=== PATIENT | female | born 1945 | race Caucasian/White ===

== ENCOUNTER 2021-01-03 16:56 | Inpatient (IN) | payer OTHER, BC ==
[~2021-01-03] VITALS: Ht 157.5 cm; Wt 75.4 kg
[2021-01-03] MEDS ORDERED: GYNODIOL0.5 MG PO (23:03)
[2021-01-03] MEDS ORDERED: ENTRESTO 49 MG1 EACH PO (23:03)
[2021-01-03] MEDS ORDERED: PROTONIX40 M2 PO (23:03)
[2021-01-03] MEDS ORDERED: ATORVASTATIN CA20 MG PO (23:03)
[2021-01-03] MEDS ORDERED: VITAMIN D21250 MCG PO (23:04)
[2021-01-03] MEDS ORDERED: CARVEDILOL6.25 M1 PO (23:05)
[2021-01-03] MEDS ORDERED: ARIPIPRAZOLE2 MG PO (23:06)
[2021-01-03] MEDS ORDERED: SPIRONOLACTONE25 M1 PO (23:23)
[2021-01-03] MEDS ORDERED: ZOLOFT25 MG PO (23:23)
[2021-01-03] MEDS ORDERED: DESYREL150 MG PO (23:24)
--- NOTE | 2021-01-04 07:39 | NUR ---
0500 PATIENT ADMITTED TO THE UNIT FROM ER VIA WHEELCHAIR. VSS. COOPERATIVE AND CALM. SIGNED IN VOLUNTARILY. PHYSICIAN NOTIFIED OF ARRIVAL. PT STATES THAT SHE WAS HAVING SI AND TOOK OD ON AMBIEN A COUPLE OF DAYS AGO. STATES THAT SHE HAS BEEN GOING THROUGH A LOT AND WAS TIRED. PT AMBULATORY VIA WALKER AND HAS NO SKIN ISSUES OTHER THAN SOME BRUISING. NO S/S OF DISTRESS NOTED. WILL CONTINUE TO MONITOR FOR CHANGE IN STATUS.
[2021-01-04 10:15] LABS: CHOLESTEROL 175 mg/dL (<200); HDL CHOLESTEROL 63 mg/dL (>40); LDL CHOLESTEROL 90 mg/dL (<100); TC:HDL 2.8 Ratio (Not establshd); TRIGLYCERIDE 110 mg/dL (<150); VLDL 22 mg/dL (<40)
[2021-01-04 10:26] VITALS: BP 120/59
--- NOTE | 2021-01-04 13:27 | NUR ---
Assumed pt care at 0700. pt was alert and oriented x4. Assessments completed, vss. Denies si/hi, denies pain at this time. Took meds whole, no fifficulty noted. Ambulates with a walker. No sign of acute distress noted at this time. Calm and cooperative with care. Pt is knowlegable of all her meds. Makes needs known to staff. Continent of bowel and bladder. At this time pt is in groups. Will continue to monitor.
--- NOTE | 2021-01-04 15:15 | NUR ---
01-04-2021--12:30 PM--went to [email or web address] and dwaine was sitting at a table alone after eating lunch. I askd if I could sit down and she said yes. We alked for about 30 minutes prioor to the social work group starting. (She was very motivated to do the activit and got up and started walking toward the group.) Patient talked about her home in [place] and the things she and her had worked on together. (They both worked at the [employer] in [place].) She shared that going there is somethng she hasn't been able to do for a long time due to her heart and difficulty breathing. She was animated when talking about her seven great-grandchildren that they occasionally care for. She appears to have things to live for and that can still bring her pleasure. She needs to reach the reality of her situation and illnesses that slow us down as we age. I will contnue to reach out to her to deterine if there are some things she can get involved in around [place].
--- NOTE | 2021-01-05 02:21 | NUR ---
PATIENT SITTING AT TABLE TALKING ON PHONE WITH DAUGHTER. PATIENT STATES THAT HER MEDICATIONS ARE NOT CORRECT. STATES THAT HER PRIMARY CARE FACILITY SENT A MED LIST THAT IS OVER 10 YEARS OLD. PATIENT IS AAO TO PERSON AND PLACE. PERIODS OF FORGETFULLNESS. PATIENT APPEARS TO SUFFER FROM SOME NIGHT TERRORS SHE YELLS OUT DURING HER SLEEP ON A FEW OCCASSIONS. PATIENT IS CALM AND COOPERATIVE AND FOLLOWS ALL COMMANDS. VSS. DENIES PAIN OR NEEDS. AMBULATES WITH WALKER. MINIMAL ASSISTANCE NEEDED FOR CARE. WILL CONTINUE TO MONITOR FOR CHANGES IN STATUS.
[2021-01-05 06:03] LABS: FOLIC ACID 11.9 ng/mL (8.6-58.9)
[2021-01-05] MEDS ORDERED: FUROSEMIDE 20 M20 M1 PO (09:21)
[2021-01-05] MEDS ORDERED: VISTARIL 25 MG25 M1 PO (09:21)
[2021-01-05] MEDS ORDERED: DULOXETINE HCL60 MG PO (09:21)
[2021-01-05 10:17] VITALS: BP 154/50
--- NOTE | 2021-01-05 10:23 | NUR ---
Nutrition: New admit [facility] with MDD, suicide attempt with Ambien. PMH: CHF, CKD, HTN, HLD, brain aneurysm, depression, CKD, pulmonary HTN, DJD. Meds/labs reviewed. pt eating 75-100% of meals so far on unit. Discussed ordering meals as pt not a big breakfast eater. Assisted with this and food preferences. Pt reports decreased appetite at home for a few months but no major weight changes. Weighs daily due to hx CHF and watches sodium intake. Weights generally run 169-175# per pt. Pt requesting standing scale weights periodically. Alerted staff. Place as low nutrition risk.
[2021-01-05 12:12] VITALS: BP 154/50
--- NOTE | 2021-01-05 13:36 | NUR ---
RESUMMED CARE FROM OVERNIGHT SHIFT THIS AM, PATIENT IN ROOM GETTING PREPARED FOR BREAKFAST. PATIENT CAME TO DAY ROOM ATE BREAKFAST TOOK MEDICATION WITHOUT INCIDENCE. PATIENT ALERT ORIENTED TIMES 4 PATIENT CALM COOPERATIVE LIKES TO TALK. PATIENTS ABDOMEN SOFT BOWEL SOUNDS PRESENT PATIENTS LUNGS CLEAR. PATIENT DENIES SI/HI/AH/VH AT PRESENT PATIENT DENIES ANXIETY AND DEPRESSION. PATIENT PARTICIPATES IN GROUPS WILL CONTINUE TO MONITOR PATIENT FOR SAFETY AND BEHAVIORS.
[2021-01-05 19:00] VITALS: BP 136/47
[2021-01-06 01:06] LABS: GLYCOHEMOGLOBIN (HGB A1C) 5.6 % (4.8-5.6)
[2021-01-06 09:07] VITALS: BP 114/59
[2021-01-06 12:46] VITALS: BP 114/59
--- NOTE | 2021-01-06 14:37 | NUR ---
RESUMMED CARE FROM OVERNIGHT SHIFT THIS AM, PATIENT ASLEEP IN ROOM. PATIENT WAS SEDATED FROM PREVIOUS DAY PRN MEDICATION SHE RECIEVED. PATIENT DID NOT EAT HER BREAKFAST AND I DID NOT GIVE HER HER MEDICATION. PATIENTS ABDOMEN SOFT BOWEL SOUNDS PRESENT, PATIENTS LUNGS CLEAR. PATIENT DID GET UP ATE LUNCH I GAVE PATIENT PRUNE JUICE AND MIRALAX. PATIENT HAD A SHOWER TODAY I ENCOURAGED PATIENT TO DRINK MORE WATER TO HELP WITH HER CONSTIPATION. PATIENT HAS NOT DISPLAYED ANY BEHAVIORS WILL CONTINUE TO MONITOR PATIENT FOR SAFETY AND BEHAVIORS.
--- NOTE | 2021-01-06 15:19 | NUR ---
Check in with patient - Pt. states she is doing well. Pt. was very verbally and expressed liking having someone to talk to. The pt. talked about her family, primarily her , children and sisters. The pt. acknowledged some feelings of depression. She denied suicidal ideation but expressed thoughts of not being alive. The pt. talked about an indicident in which she had taken pills with her orange juice, had a pistol that she struggled putting ammunition in, contacting her expressing how sorry she was and being found in the home by her . The pt. expressed not wanting to sleep due to having vivid nightmares. She states that the nightmares are beginning to not be as bad as before. The pt. also expressed sorrow and grief around the passing of her sisters.
[2021-01-06 20:09] VITALS: BP 135/48
--- NOTE | 2021-01-07 00:57 | NUR ---
PATIENT AAOX4. PATIENT IS INTERACTIVE WITH STAFF AND PEERS. DID COMPLAI OF A HEADACHE AND MILD BACK PAIN. PRN TYLENOL GIVEN. PATIENT QUIET AND COOPERATIVE. WATCHED TV IN THE COMMON AREA FOR A WHILE. NO S/S OF DISTRESS NOTED. PT HAD A CONVERSATION WITH HER DAUGHTER ON THE PHONE. NO ACUTE ISSUES OBSERVED. WILL CONTINUE TO MONITOR FOR CHANGES ON STATUS.
[2021-01-07 06:35] VITALS: BP 132/45
--- NOTE | 2021-01-07 13:19 | NUR ---
REMAINS HYPERVERBAL AND SPEECH PRESSURED-CIRCUMSTANTAL. WAS ABLE TO REPORT FEELING LIKE THOUGHTS ARE "GOING FAST" AND IT IS DIFFUCULT TO CONCENTRATENSOMETIMRS,
[2021-01-07 19:50] VITALS: BP 141/49
[2021-01-07 19:54] VITALS: BP 141/49
[2021-01-07 20:03] VITALS: BP 141/49
--- NOTE | 2021-01-08 01:05 | NUR ---
Assumed care on 01/07/21 @ 1900, A&Ox3-4 Seated in a akilah chair in the day room watching NFL football on TV. Legs proped to decrease edema, chair alarm in position with alarm activated. Referenced Suicide attempt, swallowing 20 Ambien, denies feeling suicidal at this time. Denies AH/VH, Reports depression. Discussed medication, patient asked apropriate questions regarding meds, and took medication whole with water. 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 Will contiue to monitor for comfort and safety as per unit protocol. High fall risk, uses a walker to ambulate, bed alarm set and bed in low position.
[2021-01-08 05:45] LABS: BASOPHILS 1.2 % (0.0-2.0); EOSINOPHILS 4.1 % (0.0-3.0); HEMATOCRIT 30.1 % (37.0-47.0); HEMOGLOBIN 9.9 gm/dL (12.0-15.0); LYMPHOCYTES 34.6 % (24.0-44.0); MCH 27.2 pg (26.0-34.0); MCHC 32.8 g/dL (28.0-37.0); MCV 82.9 fL (80.0-100.0); MONOCYTES 9.3 % (1.0-8.0); PLATELET COUNT 182 thou/uL (150-400); POLYS 50.8 % (36.0-66.0); RBC 3.63 mil/uL (4.20-5.00)
[2021-01-08 06:07] LABS: CALCIUM 8.8 mg/dL (8.5-10.1); CREATININE 1.1 mg/dL (0.6-1.0); MAGNESIUM 2.2 mg/dL (1.8-2.4); POTASSIUM 4.6 mmol/L (3.5-5.1)
--- NOTE | 2021-01-08 09:03 | NUR ---
01-08-2021--08:50 AM--Stopped by patient as I was walking into the dayroom. She states except for her backache she is feeling well and ready to go home. Will discuss antipicated DC date in team meeting.
[2021-01-08 10:07] VITALS: BP 114/33
[2021-01-08 10:30] VITALS: BP 114/33; BP 114/59
--- NOTE | 2021-01-08 11:15 | NUR ---
01-08-2021--11:15 AM--Call to Mr. Groves ([phone]) to request we have a family meetoing at [facility] with his daughter, if possible. We would like to discuss discharge plans and a safety plan for the patient including securoing the firearms in the home, possibly home health, or an medical receptionist assistant for patioent when he can't be at home. Not in. Requested he call me back woth the daughter's phone number and a good time tomorrow for a family meeting.
--- NOTE | 2021-01-08 11:25 | NUR ---
01-08-2021--11:25 AM--Call returned by and he is agreeable to having a family meeting with his daughter involved. He was going to call his daughter and have her call me back with a phone number for him and for her. (Daughter lives in [place]).
--- NOTE | 2021-01-08 13:22 | NUR ---
RESUMMED CARE FROM OVERNIGHT SHIFT THIS AM, PATIENT IN ROOM GETTING READY FOR BREAKFAST. PATIENT ALERT ORIENTED TIMES 4 PATIENT DENIES SI/HI/AH/VH AT PRESENT. PATIENTS ABDOMEN SOFT BOWEL SOUNDS PRESENT, PATIENTS LUNGS CLEAR. PATIENT IS HYPERVERBAL AT TIMES SHE LIKES TO TALK WITH PEOPLE. PATIENT PARTICIPATES IN GROUPS HAS NOT SHOWN ANY BEHAVIORS. WILL CONTINUE TO MONITOR PATIENT FOR SAFETY AND BEHAVIORS.
[2021-01-08 20:25] VITALS: BP 123/41
[2021-01-09] VITALS: BP 123/41
--- NOTE | 2021-01-09 01:07 | NUR ---
AT ONSET OF SHIFT PT WAS CALMLY SITTING IN HER ROOM. THIS SHIFT PT WAS ALERT AND ORIENTED X4 WITH BROAD AFFECT. PT SPENT FREE TIME SITTING IN HER ROOM READING. PT STATED THAT THE [facility]ES AND [facility] ARE WORKING AND SHE NEEDS TO BE CLOSE TO HER RESTROOM THIS EVENING. PT WAS COMPLIANT WITH VITAL SIGNS AND MEDICATION. PT HAS +1 PITTING EDEMA TO BILATERAL LEGS AND FEET. KNEE HIGH JAYJAY HOSE WERE APPLIED AND PT ENDOURAGED TO ELEVATE FEET. PT REQUESTED TRAZODONE TO HELP WITH SLEEP. DURING 1:1 WITH RN PT WAS SLIGHTLY HYPERVERBAL AND CICUMSTANTIAL. PT STATED THERE WILL BE A FAMILY MEETING TOMORROW TO DISCUSS PT MOVING TO A DIFFERENT HOSPITAL. PT STATED THIS IS NOT THE RIGHT ENVIRONMENT FOR HER SINCE SHE IS NOT DISORIENTED LIKE THE OTHER PATIENTS. PT TALKED ABOUT HER PAST NURSING CAREER. PT DENIED SI/HI/AVH. FALL PRECAUTIONS ARE IN PLACE.
--- NOTE | 2021-01-09 07:42 | NUR ---
01-08-2021--Patient's called and gave me his cell phone blanchetommy ([phone]) and his daughter's phone number for family meeting ([phone]). Meeting scheduled on 01-09-2021 at 13:00.
[2021-01-09 09:13] VITALS: BP 126/50
--- NOTE | 2021-01-09 09:49 | NUR ---
Alert and orientated X4. Calm, cooperative and compliant. Conversive. Interacting with peers and staff, participating in groups. Ambulates with regular, steady gait. Breath sounds clear. Reg HR auscultated. Color pink with brisk capillary refill and palpable peripheral pulses. +1 edema in lower legs, JAYJAY hose in place. Independent with voiding. Active bowel sounds over soft, rounded abdomen. States she had BM last night. Lidocaine patch placed on R lower back. States eyes are dry, articifial tears instilled per request.
--- NOTE | 2021-01-09 10:45 | NUR ---
01-09-2021--10:00 AM--[facility] to [facility] to determine how she is feeling prior to our famaily meeting with her and daughter. She states she feels better except for pain in her back and neck. I asked her if she had learned any new coping skills she will be able to use to prevent her from hoarding poills and tryoing to take them all at once. She stated she hadn't learned any new skills. I asked her how she is going to do. Iinquired and suggested that gettoing out of the house and volunteering at the [facility] like before or going with her on Fridaygs when he goes to the [facility] [place]. I educated her on having things to do planned ahead of time so she doesn't have to sit and wonder "What am I going to do now"? She states when she quit going with her was when she found out about her heart and she was short of breath and tired and not wanting to do anything. She reports she will be going with her more. She also states the only time he is gone is on Friday mornings and that is when her house keeper comes in so she isn't alone. Discussed the benefits of getting a therapist to work with her so she has someone to vent to and express her feelings (ex. fear about having heart problems.)
--- NOTE | 2021-01-09 14:25 | NUR ---
01-09-2021--13:00--Family meeting this date. Present in the meeting were Dion (), Michelle (patient), Clarissa (daughter); Dr. Gerald Horn (NEELA abdullahi) and this worker. Dion and her daughter had done alot of exploration into services that will be available in their area. Doctor gave suggestions for a therapist and psychiatrist, possible care/assistance at home and a out patient day program. We explained to Dion and Niles that [facility] can provide all of these services. Patient and I will call together to set up intake etc. at the [facility]. DC date--tentatively Friday at 13:00.
--- NOTE | 2021-01-09 14:43 | NUR ---
01-09-2021--14:15--Call returned to Clarissa. We discussed some of the things the doctor recommended are important but patient also needs to feel on control of her life. They may not be necessary permanently. Niles plans to come on Friday or Friday for a little while to visit mom. (Patient shared with me after the meetng that her sons were upset that they were not included in the conversation.)
[2021-01-09 19:06] VITALS: BP 135/44
[2021-01-10] VITALS: BP 135/44
--- NOTE | 2021-01-10 01:46 | NUR ---
Michelle presented as calm, cooperative, and social with staff and peers this shift. She was alert and oriented x4 and denied SI/HI/STEVENS. She expressed that her family meeting today went very well but did voice that her daughter would like her and her to go to an assisted living facility, which she expressed she does not agree with. She was able to express her needs appropriately but did appear to have a tangential thought process at times. Pt ambulated using her walker and denied needs at this time. Pt was medication compliant, without difficulty and received trazodone and tylenol PRN per pt request. Will continue to monitor.
[2021-01-10 05:36] LABS: HEMATOCRIT 29.9 % (37.0-47.0); HEMOGLOBIN 9.9 gm/dL (12.0-15.0); MCH 27.2 pg (26.0-34.0); MCHC 32.9 g/dL (28.0-37.0); MCV 82.6 fL (80.0-100.0); RBC 3.62 mil/uL (4.20-5.00); RDW 17.1 % (10.5-14.5); WBC 4.4 thou/uL (4.0-11.0)
[2021-01-10 06:38] LABS: CREATININE 1.6 mg/dL (0.6-1.0); MAGNESIUM 2.2 mg/dL (1.8-2.4); POTASSIUM 4.6 mmol/L (3.5-5.1)
[2021-01-10 09:10] VITALS: BP 118/49
--- NOTE | 2021-01-10 11:54 | NUR ---
01-10-2021--11:55 AM--ADDENDUM: From family meeting on 01-09-2021 with patient, daughter and this worker. Doctor asked oif the pistol and shotgun were put away. He indicated they were locked away and wouldn't be a problem when patient returns home.
--- NOTE | 2021-01-10 12:11 | NUR ---
PATIENT HAS BEEN UP, AND OUT ON THE UNIT, PARTICIPATES IN GROUP THERAPY. PATIENT TOOK ALL MEDICATION WHOLE WITHOUT DIFFICULTY, SHE IS EATING MEALS, AND DRINKING FLUID WELL. PATIENT AMBULATE WITH ASSIST OF ROLLER WALKER, GAIT STEADY. PATIENT IS CONTINENT OF B&B. LCTA, RESP EVEN/UNLABORED, NO SOA/CYANOSIS NOTED. BS+X4, ABD SOFT, NON-TENDER TO TOUCH. PATIENT DENIES SUICIDAL/HOMICIDAL IDEATION, FOR DEPRESSION/ANXIETY, PATIENT STATES "I FEEL REAL GOOD". AFFECT IS BRIGHT, MOOD IS CALM. NO SIGN OF ACUTE DISTRESS NOTED, WILL MONITOR FOR SAFETY.
--- NOTE | 2021-01-10 14:25 | NUR ---
01-10-2021--13:00--Brought patient to my office to assist her in making appointments with [facility]. [facility] [place] [facility] [place] [facility] The nurse receptionist stated she wouldn't have any Medicare therapists for a month or a month and a half. I requested the number in [place] and an appointment was made for Friday at 10:30. When I got off the phone the patient told me [facility] is closer to her than [place]. So I got the number for the [facility]. Address is [address] [place] [address]. ([phone]) Patient made an appointment for @ 12:30 PM. (She needs to be there a half hour earlly to fill out paperwork. The fax number for [facility] is ([phone]). I will fax them discharge papers and pertinent notes. Had patient write the information for herself. Will review information with her tomorrow and put in DC paperwork.
[2021-01-10 19:39] VITALS: BP 113/42
[2021-01-10 23:01] VITALS: BP 113/42
--- NOTE | 2021-01-11 03:35 | NUR ---
Michelle presented as calm, cooperative, and pleasant this shift. She was social with staff and peers, noted to be smiling and laughing often. She denied SI/HI/STEVENS and expressed that she feels as though her medicaitons have been helping. She denied "night terrors" since starting prazosin. She expressed wishes to receive a shower in the morning which pt was educated will be passed on in report. She noted talking to her and that her daughter will be flying into town on Friday which she is looking forward to. Pt received tylenol PRN for back pain and PRN artificial tears per pt request. Pt denied any other complaints, will continue to monitor.
[2021-01-11 09:15] VITALS: BP 118/38
[2021-01-11 09:18] VITALS: BP 112/46
[2021-01-11 09:22] VITALS: BP 102/42
--- NOTE | 2021-01-11 12:17 | NUR ---
RT Progress Note- Michelle has been an active member of both the milieu and recreation therapy groups since her admission one week ago. Michelle often presents with a bright affect and is highly contributive to discussions. She has not made any SI statments and has been able to express insight into the future and how she plans to manage her depression once she is home. [facility] will continue to encourage progress.
--- NOTE | 2021-01-11 12:26 | NUR ---
0730 Alert and orientated X4. Denies SI/HI. Calm, cooperative and compliant. Conversive this AM, denies pain. Lidocaine patch applied to R neck and back. Breath sounds clear. Reg HR auscultated. Color pink with brisk capillary refill and palpable peripheral pulses. Declining to wear JAYJAY hose until after shower. +1 edema in lower extremities. Independent with voiding. Active bowel sounds over soft, rounded abdomen. States she had BM yesterday. Ambulates with reg, steady gait with walker. 1000 Asked to leave group to take remainder of AM meds. When got to room she stated when she got up from chair she became exhausted and felt like her BP dropped to 80/30. Encouraged to sit down. She sat down took her meds and then laid down. Stated she hoped that she didn't need to be admitted to [facility] because her heart didn't feel right. Reports jaw and tooth pain 8/10 that decreased to 6/10. VS done, Dr. Mratinez pagezeenat. Dr. Rea notified, ordered Ativan 1 mg. Troponin level and EKG ordered by Dr. Martinez. Sitting up in room coloring about 30 min after episode. Currently eating lunch in room without s/o distress. Reports large BM today.
--- NOTE | 2021-01-11 13:37 | EKG ---
[place] [address] [facility] [place] [address] ELECTROCARDIOGRAM REPORT Name: AMANDAACRRIE Room #: 527B-B ADM IN M.R.#: [id number] Admission: 01/04/21 Attend Phys: Topher Rea DO Discharge: Date of : 43 Report #: [id number] [facility] Test Date: 2021-01-11 Test Time: 11:49:17 Pat Name: CARRIE PATEL Department: Room: [facility] Gender: F Engineer Station Mainline: KAREN : 1945 Requested By: Leo Martinez Order Number: [id number] MD: Jamie Govea Measurements Intervals [place] Rate: 68 P: 51 SC: 203 QRS: 0 QRSD: 97 T: 136 QT: 393 QTc: 418 Interpretive Statements Sinus rhythm Anterior infarct, old Baseline wander in lead(s) I No previous ECG available for comparison Electronically Signed On 01-11-2021 13:36:45 CDT by Jamie Govea [email or web address] <ELECTRONICALLY SIGNED> By: Jamie Govea MD, [facility] 01/11/21 1336 [id number] 1149 Jamie Govea MD, FACC /EPI
--- NOTE | 2021-01-11 13:53 | NUR ---
01-11-2021--13:30--Patient in with She was asked to come to group but didn't come.
[2021-01-11 17:20] VITALS: BP 147/60
[2021-01-11 19:39] VITALS: BP 111/42
[2021-01-11 21:33] VITALS: BP 111/42
--- NOTE | 2021-01-12 02:06 | NUR ---
Michelle presented as calm, cooperative, and pleasant throughout the shift. She was more isolative to her room and was noted coloring a picture for her grandson. She was alert and oriented x4 and denied SI/HI/STEVENS. She expressed being "ready" to go home tomorrow and looks forward to spending time with her family this weekend. Pt's Entresto was held due to parameters to hold if SBP < 130 (SBP was 111). Pt voiced some frustration with the parameters but understood and stated she would talk to her outpatient provider after D/C. Pt received tylenol PRN for back pain and trazodone PRN for insomnia; pt was sleeping about 45 minutes after receiving. Will continue to monitor.
[2021-01-12 08:28] VITALS: BP 100/45
[2021-01-12] MEDS ORDERED: SPIRONOLACTONE25 M1 PO (09:01)
[2021-01-12] MEDS ORDERED: PRAZOSIN HCL1 MG PO (09:01)
[2021-01-12] MEDS ORDERED: ZOLOFT 50 MG TA50 MG PO (09:02)
--- NOTE | 2021-01-12 09:05 | NUR ---
01-12-2021--9:00 AM--Met with patient to review information for her appointment next at the [facility] at 12:30. She had all information written down and it will be on her DC paperwork.
[2021-01-12] MEDS ORDERED: LIDOPATCH1 EACH TRANSDERM (09:07)
[2021-01-12] MEDS ORDERED: B-12500 MCG PO (09:08)
[2021-01-12] MEDS ORDERED: FOLIC ACID1 MG PO (09:09)
[2021-01-12] MEDS ORDERED: MINIPRESS1 MG PO (10:37)
[2021-01-12 12:02] VITALS: BP 120/80
[2021-01-12 12:19] VITALS: BP 120/80
--- NOTE | 2021-01-12 13:54 | NUR ---
RESUMMED CARE FROM OVERNIGHT THIS AM, PATIENT ALERT ORIENTED TIMES 4. PATIENT CALM COOPERATIVE DENIES SI/HI/AH/AH AT PRESENT. PATIENTS ABDOMEN SOFT BOWEL SOUNDS PRESENT, PATIENTS LUNGS CLEAR. PATIENT ATE BREAKFAST TOOK MEDICATION WITHOUT INCIDENCE. PATIENT DISCHARGED TODAY TO HOME WITH BELONGINGS, DISCHARGE INSTRUCTIONS. WALKED PATIENT DOWN TO [facility] THANKED ALL THE STAFF WHO WORKED WITH HER.
--- NOTE | 2021-01-13 20:26 | D ---
[facility] [place] [address] DISCHARGE SUMMARY Name: CARRIE PATEL Room #: 527B-B [facility] IN M.R.#: [id number] Admission: 01/04/21 Attend Phys: Topher Rea DO Discharge: 01/12/21 Date of : 43 Report #: [id number] THIS REPORT FOR: cc: [facility] - Clinic physician unknown [facility] - Clinic physician unknown Topher Rea DO ~ DATE OF SERVICE: 01/12/2021 INPATIENT PSYCHIATRIC DISCHARGE SUMMARY ATTENDING PSYCHIATRIST: Topher Rea DO FLOOR REFINISHER: Leo Martinez MD DISCHARGE DIAGNOSES: Major depressive disorder, single episode, severe degree, improved. Medical comorbidities include hypertension, systolic heart failure, back pain, chronic kidney disease stage III, hyperlipidemia, asthma, obstructive sleep apnea, history of cerebral aneurysm, acute kidney injury, creatinine 1.6. AFTERCARE: The patient is discharging to her home where she lives with her , Dion. Psychiatric care to be provided by a clinic in [place], which is good. The patient should see primary care physician in 1 month and the patient has appointment at the [facility] at 12:30 next Friday, so that would be the . We will discharge the patient on the following medications. Regular diet. Activity level as tolerated. No alcohol, no illicit drugs. confirmed firearms have been removed from the home. DISCHARGE MEDICATIONS: Sacubitril/valsartan 49/51 mg 1 each oral twice daily, estradiol 0.5 mg oral daily that is for hormone replacement, pantoprazole 40 mg oral daily, atorvastatin 20 mg oral daily, ergocalciferol 1250 mcg oral weekly, furosemide 20 mg oral daily, carvedilol 6.25 mg oral twice daily with meals, prazosin 2 mg oral daily. As she is still too tired with the 2 mg, she will reduce to 1 mg and advise me, so I prescribed at 1 mg strength, that is for nightmares and night terrors. Spironolactone 25 mg oral daily, sertraline 75 mg oral daily as her antidepressant. Lidocaine patch 1 transdermal to back or neck 12 on, 12 hours off for #30. I advised the patient I will not do a prior authorization for this as insurance companies ask me for information I cannot possibly provide to approve it. Cyanocobalamin 1000 mcg oral daily for supplementation, folic acid 1 mg oral daily. The patient does utilize a walker for ambulation. LABORATORY DATA: Significant laboratories this admission: Hematology: White count 4.4, H and H 9.9 and 29.9, platelet count 207. Chemistry: Sodium 140, potassium 4.6, chloride 104, bicarbonate 26, anion gap 10, BUN 26, creatinine 1.6, up from 1.1 on 01/08/2021. Estimated GFR 31, calcium 9.0, magnesium 2.2. Troponin 10. NT-proBNP [address]. [address] [address] DISCHARGE SUMMARY Name: CARRIE PATEL Room #: 527B-B [facility] IN .R.#: [id number] Admission: 01/04/21 Attend Phys: Topher Rea, DO Discharge: 01/12/21 Date of : 43 Report #: [id number] REASON FOR ADMISSION: Back on the or so, a 75-year-old female admitted for overdose and being found by a revolver at her home. The overdose was on Ambien. She did admit her intent was to go to sleep and not wake up. Apparently, her was away from the home. She felt lonely. She has had some unresolved grief issues from a family member. The patient has been a patient of Dr. Noel Tafoya. She had a prior admission at [facility] for about 10 days, but has seen Dr. Tafoya since he worked at [facility] on the [place]. HOSPITAL COURSE: The patient was [facility]. The patient was initially a little difficult to engage. There was some confusion as she had been hospitalized at [facility]. Whether sertraline had been stopped or started, it took a day or two to clear that up and they did want to move forward with sertraline therapy. We had a family meeting. The patient's daughter is in [place]. We discussed that the patient has been isolative, does not have a regular therapist, that these elements need to change. The daughter will be flying in tomorrow 01/13/2021 to spend some time with the patient. We discussed the need for stimulation of healthy relationships. Her , Dion, is still learning, but will be most beneficial for the patient. CONDITION AT DISCHARGE: Stable. PHYSICAL EXAMINATION: VITAL SIGNS: Temperature 37.2, pulse 96, respirations 19, BP 120/80, O2 sat 96%. MUSCULOSKELETAL: Unkempt, ambulates with a walker. BMI 30.4, weight 75.432 kilograms. MENTAL STATUS EXAMINATION: Well-developed, somewhat unkempt female, appearing stated age. Attention fair. Concentration fair. Speech normal rate, rhythm and tone. Thought process linear and goal directed. Thought content focused on discharge. Denied SI, HI, auditory or visual type hallucinations. No hopelessness, helplessness. Mood and affect is okay, congruent, euthymic. Memory not formally tested. Insight limited. Judgment fair. Fund of knowledge at least average. PROGNOSIS: For this patient is guarded and depends on her engagement in the mental health resources and lifestyle modifications discussed. We are setting the patient up with the new psychiatrist and therapist as Dr. Tafoya has time constraints in his current practice according to the patient. <ELECTRONICALLY SIGNED> By: Topher Rea DO 01/13/212025 [id number] Topher Rea DO /nt
== END 2021-01-12 13:00 | disposition home or self-care (01) | DRG 885 ==
LOC: SBH 16:56
PROVIDERS: Internal Medicine; Nurse Practitioner; ADMIT Psychiatry & Neurology Psychiatry; ATTEND Psychiatry & Neurology Psychiatry
DX: F32.2 Major depressive disorder, single episode, severe without psychotic features (principal); N18.30 Chronic kidney disease, stage 3 unspecified; T42.6X2A Poisoning by other antiepileptic and sedative-hypnotic drugs, intentional self-harm, initial encounter; I13.0 Hypertensive heart and chronic kidney disease with heart failure and stage 1 through stage 4 chronic kidney disease, or unspecified chronic kidney disease; I50.20 Unspecified systolic (congestive) heart failure; E78.5 Hyperlipidemia, unspecified; J45.909 Unspecified asthma, uncomplicated; G47.30 Sleep apnea, unspecified; M54.9 Dorsalgia, unspecified; Z20.822 Contact with and (suspected) exposure to COVID-19; I27.20 Pulmonary hypertension, unspecified; M19.90 Unspecified osteoarthritis, unspecified site; Z88.0 Allergy status to penicillin; Z88.6 Allergy status to analgesic agent; Z91.041 Radiographic dye allergy status; Z90.710 Acquired absence of both cervix and uterus; Z90.49 Acquired absence of other specified parts of digestive tract; Y92.89 Other specified places as the place of occurrence of the external cause; Z79.899 Other long term (current) drug therapy
CPT/HCPCS: 10880

== ENCOUNTER 2021-01-03 18:11 | Emergency (ER) | payer OTHER, BC ==
[~2021-01-03] VITALS: Ht 170.2 cm; Wt 77.1 kg
[2021-01-03 18:12] VITALS: BP 165/50
[2021-01-03] MEDS ORDERED: GYNODIOL0.5 MG PO (23:03)
[2021-01-03] MEDS ORDERED: PROTONIX40 M2 PO (23:03)
[2021-01-03] MEDS ORDERED: ENTRESTO 49 MG1 EACH PO (23:03)
[2021-01-03] MEDS ORDERED: ATORVASTATIN CA20 MG PO (23:03)
[2021-01-03] MEDS ORDERED: VITAMIN D21250 MCG PO (23:04)
[2021-01-03] MEDS ORDERED: CARVEDILOL6.25 M1 PO (23:05)
[2021-01-03] MEDS ORDERED: ARIPIPRAZOLE2 MG PO (23:06)
[2021-01-03] MEDS ORDERED: SPIRONOLACTONE25 M1 PO (23:23)
[2021-01-03] MEDS ORDERED: ZOLOFT25 MG PO (23:23)
[2021-01-03] MEDS ORDERED: DESYREL150 MG PO (23:24)
[2021-01-04 05:14] VITALS: BP 119/39
[2021-01-05] MEDS ORDERED: DULOXETINE HCL60 MG PO (09:21)
[2021-01-05] MEDS ORDERED: FUROSEMIDE 20 M20 M1 PO (09:21)
[2021-01-05] MEDS ORDERED: VISTARIL 25 MG25 M1 PO (09:21)
== END 2021-01-04 05:19 ==
LOC: ER 18:11 → SBH 01-04 04:58 → ER 01-04 04:58
PROVIDERS: Emergency Medicine
DX: R45.851 Suicidal ideations (principal); Z20.822 Contact with and (suspected) exposure to COVID-19; Z88.5 Allergy status to narcotic agent; Z88.0 Allergy status to penicillin; Z91.041 Radiographic dye allergy status